=== PATIENT | female | born 1965 | race Caucasian/White ===

== ENCOUNTER 2017-01-14 17:58 | Inpatient (IN) | payer OTHER ==
[~2017-01-14] VITALS: Ht 152.4 cm; Wt 86.8 kg
[~2017-01-14 17:58] MED LIST: ABILIFY20 MG PO; ADVIL200 MG PO; ALBUTEROL SULF8.5 GM IH; ASPIR-LOW81 MG PO; ASPIR-TRIN325 M1 PO; AUGMENTIN875 MG PO; Amoxicillin PO; CELEXA40 MG PO; CITALOPRAM HBR40 MG PO; CLARITIN,ALAVAR10 MG PO; CLARITIN10 M3 PO; CYMBALTA20 MG PO; CYMBALTA30 MG PO; DITROPAN XL5 MG PO; FENOFIBRATE160 M1 PO; HUMALOG100 UNIT/1 SC; HUMALOG100 UNIT/2 SC; IBUPROFEN800 MG PO; IMDUR30 MG PO; JANUVIA100 MG PO; LAMICTAL200 MG PO; LANTUS 10100 UNITS/ SC; LANTUS 3 M100 UNITS1 SC; LANTUS100 UNIT/1; LEXAPRO10 MG PO; LIPITOR20 MG PO; LIPITOR40 MG PO; LISINOPRIL2.5 MG PO; LISINOPRIL20 MG PO; LOPRESSOR25 MG PO; LORAZEPAM1 MG PO; LaMICtal PO; METOPROLOL PO; METOPROLOL SUCC25 MG PO; METOPROLOL TART25 MG PO; MOBIC7.5 MG PO; MORPHINE SULFAT15 M1 PO; MS CONTIN,ORAMO15 M1 PO; NABUMETONE500 MG PO; NASONEX17 GM NS; NITROSTAT,NITR0.4 M1 SL; NOVOLOG 10100 UNITS/ SC; NOVOLOG PE100 UNITS/ SC; OXYCODONE HCL10 MG PO; OXYCODONE PO; PERCOCET 10-321 EACH PO; PERCOCET 10/1 TABLET PO; PLAVIX75 MG PO; PRAVACHOL40 MG PO; PRAVASTATIN SOD40 MG PO; PREDNISONE20 MG PO; PREDNISONE50 MG PO; PREVACID30 MG PO; PRINIVIL5 MG PO; PROTONIX40 MG PO; SULINDAC200 MG PO; TOPROL XL50 MG PO; TRAMADOL HCL50 MG PO; TYLENOL W/COD1 COMBO PO; VITAMIN D1000 INTUN PO; ZESTRIL5 MG PO; ZITHROMAX Z-PA250 MG PO; ZOFRAN4 MG PO
[2017-01-14 19:11] LABS: HEMATOCRIT 33.5 % (36.0-46.0); MCH 28.3 PG (29.0-34.0); MCHC 33.7 G/DL (30.0-36.0); MEAN PLAT.VOLUME 10.2 uM^3 (9.5-12.4); PLATELET COUNT 233 K/uL (156-360); RBC DIS.WIDTH-CV 13.1 % (11.8-14.6); RBC DIS.WIDTH-SD 39.9 % (39-53); RED BLOOD COUNT 3.99 M/uL (3.80-5.20); WHITE BLOOD COUNT 7.2 K/uL (4.1-10.2)
[2017-01-14 19:21] LABS: CHLORIDE 106 mEq/L (99-109); POTASSIUM 3.8 mEq/L (3.7-5.4); SODIUM 138 mEq/L (136-147)
[2017-01-14 19:23] LABS: GLUCOSE 238 mg/dL (70-99)
[2017-01-14 19:24] LABS: ANION GAP 12 MEQ/L (2-14)
[2017-01-14 19:25] LABS: TOTAL BILIRUBIN 0.8 mg/dL (0.0-1.0)
[2017-01-14 19:26] LABS: ALKALINE PHOSPHATASE 108 IU/L (3-129)
[2017-01-14 19:27] LABS: GFR ESTIMATE (CALCULATED) > 59 mL/min/
[2017-01-14 19:28] LABS: UREA NITROGEN (BUN) 17 mg/dL (9-23)
[2017-01-14 20:02] LABS: C-REACTIVE PROTEIN 70.7 MG/L (0-10); SAMPLE HEMOLYSIS CHECK 0; SAMPLE ICTERIC CHECK 0; SAMPLE LIPEMIA CHECK 0
[2017-01-14 20:26] LABS: ERTH.SED.RATE 67 MM/HR (0-30)
[2017-01-14] MEDS ORDERED: LIPITOR80 MG PO (21:16)
[2017-01-14] MEDS ORDERED: IMDUR30 MG PO (21:24)
[2017-01-14] MEDS ORDERED: VICTOZA0.6 MG/0.1 SC (21:24)
[2017-01-14] MEDS ORDERED: LEVO-T50 MCG PO (21:25)
[2017-01-15] VITALS (7 sets, daily range): BP systolic 100–178; BP diastolic 55–87
[2017-01-15 00:35] LABS: POINT-OF-CARE METER ID UU14100415
[2017-01-15] MEDS ORDERED: LANTUS 10100 UNITS/ SC ×2 (00:53)
[2017-01-15] MEDS ORDERED: LO-DOSE ASPIRIN81 M2 PO (00:54)
[2017-01-15] MEDS ORDERED: ARYMO ER15 MG PO (00:54)
[2017-01-15] MEDS ORDERED: PANTOPRAZOLE SO40 MG PO (00:55)
[2017-01-15] MEDS ORDERED: LISINOPRIL5 MG PO (00:55)
[2017-01-15] MEDS ORDERED: DITROPAN XL5 MG PO (00:55)
[2017-01-15] MEDS ORDERED: METOPROLOL SUCC50 MG PO (00:56)
[2017-01-15] MEDS ORDERED: NOVOLOG 10100 UNITS/ SC (00:57)
[2017-01-15] MEDS ORDERED: OXYCODONE HCL10 MG PO (00:57)
[2017-01-15] MEDS ORDERED: CLARITIN,ALAVAR10 MG PO (00:58)
[2017-01-15] MEDS ORDERED: CYMBALTA20 MG PO (00:58)
[2017-01-15] MEDS ORDERED: VICTOZA 2-0.6 MG/0.1 SC (00:59)
[2017-01-15] MEDS ORDERED: ISOSORBIDE MONO30 MG PO (00:59)
[2017-01-15] MEDS ORDERED: LEVO-T50 MCG PO (00:59)
[2017-01-15] MEDS ORDERED: ATORVASTATIN CA80 MG PO (01:00)
[2017-01-15] MEDS ORDERED: BRILINTA90 MG PO (01:00)
[2017-01-15 06:23] LABS: EOSINOPHIL (%) 2.9 % (0-5); EOSINOPHIL COUNT 0.2 K/uL (0-0.3); IMMATURE GRANULOCYTE (%) 0.5 % (0.0-0.7); INSTRUMENT ABS NEUTROPHIL CT 3.5 K/uL; LYMPHOCYTE COUNT 1.9 K/uL (1.0-2.8); MCH 28.6 PG (29.0-34.0); MCHC 33.9 G/DL (30.0-36.0); MCV 84.2 FL (83-99); MEAN PLAT.VOLUME 9.8 uM^3 (9.5-12.4); MONOCYTE (%) 10.2 % (3-12); MONOCYTE COUNT 0.6 K/uL (0-0.8); NEUTROPHIL COUNT 3.5 K/uL (1.8-6.4); PLATELET COUNT 203 K/uL (156-360); RBC DIS.WIDTH-CV 13.3 % (11.8-14.6); RED BLOOD COUNT 3.92 M/uL (3.80-5.20); WHITE BLOOD COUNT 6.2 K/uL (4.1-10.2)
[2017-01-15 06:34] LABS: CHLORIDE 108 mEq/L (99-109); POTASSIUM 3.8 mEq/L (3.7-5.4); SODIUM 136 mEq/L (136-147)
[2017-01-15 06:36] LABS: GLUCOSE 281 mg/dL (70-99)
[2017-01-15 06:37] LABS: ANION GAP 8 MEQ/L (2-14)
[2017-01-15 06:39] LABS: GFR ESTIMATE (CALCULATED) > 59 mL/min/
[2017-01-15 06:40] LABS: UREA NITROGEN (BUN) 13 mg/dL (9-23)
[2017-01-15 12:48] LABS: POINT-OF-CARE METER ID UU13113807
[2017-01-15 17:47] LABS: POINT-OF-CARE METER ID UU14149398
[2017-01-15 20:37] LABS: Estimated Average Glucose 289 mg/dL (70-123); HEMOGLOBIN A1c (GLYCOHEMOGLOB) 11.7 % HGB (Below 5.7)
[2017-01-15 21:52] LABS: POINT-OF-CARE METER ID UU13113675
[2017-01-15 22:47] LABS: POINT-OF-CARE METER ID UU14149398
[2017-01-16 07:38] LABS: POINT-OF-CARE METER ID UU14149398
[2017-01-16 08:00] VITALS: BP 100/67
[2017-01-16 09:46] LABS: HEMATOCRIT 32.2 % (36.0-46.0); MCH 28.4 PG (29.0-34.0); MCHC 32.3 G/DL (30.0-36.0); PLATELET COUNT 216 K/uL (156-360); RBC DIS.WIDTH-CV 13.3 % (11.8-14.6); RBC DIS.WIDTH-SD 43.4 % (39-53); RED BLOOD COUNT 3.66 M/uL (3.80-5.20); WHITE BLOOD COUNT 8.3 K/uL (4.1-10.2)
[2017-01-16 10:04] LABS: ANION GAP 24 MEQ/L (2-14); CHLORIDE 87 MEQ/L (99-109); GFR ESTIMATE (CALCULATED) 29 mL/min/; GLUCOSE 143 mg/dL (70-99); POTASSIUM 3.3 MEQ/L (3.7-5.4); SAMPLE HEMOLYSIS CHECK 0; SAMPLE ICTERIC CHECK 0; SAMPLE LIPEMIA CHECK 0; SODIUM 134 MEQ/L (136-147); UREA NITROGEN (BUN) 24 mg/dL (9-23)
[2017-01-16 12:00] VITALS: BP 101/55; BP 189/102
[2017-01-16 12:43] LABS: POINT-OF-CARE METER ID UU14149398
[2017-01-16 14:52] VITALS: BP 93/57
[2017-01-16 20:12] VITALS: BP 108/61
[2017-01-16 23:51] VITALS: BP 104/56
[2017-01-17 04:15] VITALS: BP 106/59
[2017-01-17 06:25] LABS: HEMATOCRIT 33.1 % (36.0-46.0); MCH 28.2 PG (29.0-34.0); MCHC 31.7 G/DL (30.0-36.0); MCV 88.7 FL (83-99); MEAN PLAT.VOLUME 10.1 uM^3 (9.5-12.4); PLATELET COUNT 231 K/uL (156-360); RBC DIS.WIDTH-CV 13.5 % (11.8-14.6); RBC DIS.WIDTH-SD 44.1 % (39-53); RED BLOOD COUNT 3.73 M/uL (3.80-5.20); WHITE BLOOD COUNT 10.3 K/uL (4.1-10.2)
[2017-01-17 06:49] LABS: ANION GAP 12 MEQ/L (2-14); CHLORIDE 104 MEQ/L (99-109); GFR ESTIMATE (CALCULATED) 16 mL/min/; GLUCOSE 102 mg/dL (70-99); POTASSIUM 4.4 MEQ/L (3.7-5.4); SAMPLE HEMOLYSIS CHECK 0; SAMPLE ICTERIC CHECK 0; SAMPLE LIPEMIA CHECK 0; SODIUM 137 MEQ/L (136-147); UREA NITROGEN (BUN) 37 mg/dL (9-23)
[2017-01-17 08:33] VITALS: BP 100/59
[2017-01-17 11:58] LABS: POINT-OF-CARE METER ID UU14149397
[2017-01-17 16:39] VITALS: BP 98/56
[2017-01-17 20:00] VITALS: BP 122/60
[2017-01-17 23:47] VITALS: BP 128/60
[2017-01-18 05:53] LABS: EOSINOPHIL COUNT 0.2 K/uL (0-0.3); HEMATOCRIT 29.1 % (36.0-46.0); IMMATURE GRANULOCYTE (%) 1.1 % (0.0-0.7); IMMATURE GRANULOCYTE COUNT 0.1 K/uL; INSTRUMENT ABS NEUTROPHIL CT 7.3 K/uL; LYMPHOCYTE COUNT 1.2 K/uL (1.0-2.8); MCH 28.1 PG (29.0-34.0); MCHC 31.6 G/DL (30.0-36.0); MEAN PLAT.VOLUME 10.3 uM^3 (9.5-12.4); MONOCYTE (%) 10.5 % (3-12); MONOCYTE COUNT 1.1 K/uL (0-0.8); NEUTROPHIL (%) 73.8 % (45-76); NEUTROPHIL COUNT 7.3 K/uL (1.8-6.4); PLATELET COUNT 212 K/uL (156-360); RBC DIS.WIDTH-CV 13.6 % (11.8-14.6); RBC DIS.WIDTH-SD 44.7 % (39-53); RED BLOOD COUNT 3.27 M/uL (3.80-5.20)
[2017-01-18 06:13] LABS: ANION GAP 13 MEQ/L (2-14); CHLORIDE 106 MEQ/L (99-109); GFR ESTIMATE (CALCULATED) 14 mL/min/; GLUCOSE 90 mg/dL (70-99); IRON 21 MCG/DL (35-150); POTASSIUM 4.8 MEQ/L (3.7-5.4); SAMPLE HEMOLYSIS CHECK 0; SAMPLE ICTERIC CHECK 0; SAMPLE LIPEMIA CHECK 0; SODIUM 135 MEQ/L (136-147); UREA NITROGEN (BUN) 46 mg/dL (9-23)
[2017-01-18 08:22] VITALS: BP 96/54
[2017-01-18 12:27] LABS: POINT-OF-CARE METER ID UU14149397
[2017-01-18 16:10] VITALS: BP 116/63
[2017-01-18 16:42] LABS: POINT-OF-CARE METER ID UU14149397
[2017-01-18 23:37] VITALS: BP 121/68
[2017-01-19 06:10] LABS: ANION GAP 11 MEQ/L (2-14); CHLORIDE 109 MEQ/L (99-109); GFR ESTIMATE (CALCULATED) 15 mL/min/; GLUCOSE 70 mg/dL (70-99); POTASSIUM 4.4 MEQ/L (3.7-5.4); SAMPLE HEMOLYSIS CHECK 0; SAMPLE ICTERIC CHECK 0; SAMPLE LIPEMIA CHECK 0; SODIUM 137 MEQ/L (136-147); UREA NITROGEN (BUN) 53 mg/dL (9-23)
[2017-01-19 08:05] VITALS: BP 85/50
[2017-01-19 16:13] VITALS: BP 104/55
[2017-01-19 23:29] VITALS: BP 131/70
[2017-01-20 06:52] LABS: ANION GAP 11 MEQ/L (2-14); CHLORIDE 112 MEQ/L (99-109); GFR ESTIMATE (CALCULATED) 18 mL/min/; GLUCOSE 55 mg/dL (70-99); POTASSIUM 3.8 MEQ/L (3.7-5.4); SAMPLE HEMOLYSIS CHECK 0; SAMPLE ICTERIC CHECK 0; SAMPLE LIPEMIA CHECK 0; SODIUM 139 MEQ/L (136-147); UREA NITROGEN (BUN) 52 mg/dL (9-23)
[2017-01-20 07:33] LABS: POINT-OF-CARE METER ID UU14188577
[2017-01-20 08:51] VITALS: BP 121/71
[2017-01-20 11:34] LABS: POINT-OF-CARE METER ID UU14188577
[2017-01-20 11:36] LABS: EOSINOPHIL (%) 1.5 % (0-5); EOSINOPHIL COUNT 0.1 K/uL (0-0.3); IMMATURE GRANULOCYTE (%) 0.4 % (0.0-0.7); INSTRUMENT ABS NEUTROPHIL CT 5.8 K/uL; MCH 27.7 PG (29.0-34.0); MCHC 31.4 G/DL (30.0-36.0); MCV 88.4 FL (83-99); MEAN PLAT.VOLUME 10.3 uM^3 (9.5-12.4); MONOCYTE (%) 8.5 % (3-12); MONOCYTE COUNT 0.6 K/uL (0-0.8); NEUTROPHIL (%) 76.4 % (45-76); NEUTROPHIL COUNT 5.8 K/uL (1.8-6.4); PLATELET COUNT 218 K/uL (156-360); RBC DIS.WIDTH-CV 13.8 % (11.8-14.6); RBC DIS.WIDTH-SD 44.9 % (39-53); RED BLOOD COUNT 3.28 M/uL (3.80-5.20); WHITE BLOOD COUNT 7.5 K/uL (4.1-10.2)
[2017-01-20 12:06] LABS: POINT-OF-CARE METER ID UU14188577
[2017-01-20 13:50] LABS: ADD MIUA? NO; BILIRUBIN NEGATIVE; BLOOD NEGATIVE; COLOR STRAW ((YELLOW)); GLUCOSE (STRIP) NEGATIVE; KETONES NEGATIVE; LEUKOCYTES NEGATIVE; NITRITE NEGATIVE; PROTEIN (STRIP) NEGATIVE; SPECIFIC GRAVITY 1.008 (1.000-1.030); UROBILINOGEN 0.2 MG/DL (0.2-1.0)
[2017-01-20 16:20] VITALS: BP 161/81
[2017-01-20 21:11] LABS: POINT-OF-CARE METER ID UU14188577
[2017-01-21 00:43] VITALS: BP 154/72
[2017-01-21 05:48] LABS: CARBON DIOXIDE (BICARBONATE) 19.1 MEQ/L (20-31)
[2017-01-21 06:14] LABS: ANION GAP 13 MEQ/L (2-14); CHLORIDE 112 MEQ/L (99-109); GFR ESTIMATE (CALCULATED) 24 mL/min/; POTASSIUM 3.7 MEQ/L (3.7-5.4); SAMPLE HEMOLYSIS CHECK 0; SAMPLE ICTERIC CHECK 0; SAMPLE LIPEMIA CHECK 0; SODIUM 141 MEQ/L (136-147); UREA NITROGEN (BUN) 41 mg/dL (9-23)
[2017-01-21 06:17] LABS: GLUCOSE 145 mg/dL (70-99)
[2017-01-21 07:39] LABS: POINT-OF-CARE METER ID UU14149397
[2017-01-21 07:43] VITALS: BP 162/85
[2017-01-21 11:09] LABS: POINT-OF-CARE METER ID UU14149397
[2017-01-21 15:17] VITALS: BP 122/66
[2017-01-21 16:45] LABS: POINT-OF-CARE METER ID UU14149397
[2017-01-21 23:26] VITALS: BP 154/78
[2017-01-22 06:16] LABS: HEMATOCRIT 32.2 % (36.0-46.0); MCH 28.2 PG (29.0-34.0); MCHC 32.6 G/DL (30.0-36.0); MCV 86.6 FL (83-99); MEAN PLAT.VOLUME 9.6 uM^3 (9.5-12.4); RBC DIS.WIDTH-CV 13.8 % (11.8-14.6); RBC DIS.WIDTH-SD 43.7 % (39-53); RED BLOOD COUNT 3.72 M/uL (3.80-5.20)
[2017-01-22 06:46] LABS: ANION GAP 12 MEQ/L (2-14); CHLORIDE 110 MEQ/L (99-109); GFR ESTIMATE (CALCULATED) 29 mL/min/; POTASSIUM 3.7 MEQ/L (3.7-5.4); SAMPLE HEMOLYSIS CHECK 0; SAMPLE ICTERIC CHECK 0; SAMPLE LIPEMIA CHECK 0; SODIUM 142 MEQ/L (136-147); UREA NITROGEN (BUN) 35 mg/dL (9-23)
[2017-01-22 06:51] LABS: GLUCOSE 66 mg/dL (70-99)
[2017-01-22 07:15] LABS: PLATELET COUNT 291 K/uL (156-360); WHITE BLOOD COUNT 10.1 K/uL (4.1-10.2)
[2017-01-22 08:28] VITALS: BP 129/85
[2017-01-22 09:34] LABS: ADD MIUA? NO; BILIRUBIN NEGATIVE; BLOOD NEGATIVE; COLOR STRAW ((YELLOW)); GLUCOSE (STRIP) NEGATIVE; KETONES NEGATIVE; LEUKOCYTES NEGATIVE; NITRITE NEGATIVE; PROTEIN (STRIP) NEGATIVE; SPECIFIC GRAVITY 1.009 (1.000-1.030); UCUL ADDED? NO; UROBILINOGEN 0.2 MG/DL (0.2-1.0)
[2017-01-22 11:26] LABS: BASE EXCESS -2.5 mEq/L (-3 to +3); BICARBONATE 21.2 mEq/L (22-26); CARBOXY HGB 3.6 % (0-5); METHEMOGLOBIN 1.1 % (0-1.5); PCO2 32 mm Hg (35-45); PO2 69 mm Hg (80-100); pH 7.43 (7.35-7.45)
[2017-01-22 11:27] LABS: COMMENTS - BLOOD GASES A+C+; DEVICE RA; SITE RR; TOTAL RESP RATE 16 resp/min
[2017-01-22 11:33] LABS: POINT-OF-CARE METER ID UU14149397
[2017-01-22 16:00] VITALS: BP 141/71
[2017-01-22 16:54] LABS: POINT-OF-CARE METER ID UU14149397
== END 2017-01-22 19:34 | disposition left against medical advice (07) | DRG 638 ==
LOC: EME 17:58 → EDOF 21:28 → 4SOUTH 21:28 → 3EAST 21:28 → 4SOUTH 01-15 07:25 → 3EAST 01-16 14:37
PROVIDERS: Hospitalist; Internal Medicine; Internal Medicine Nephrology; Nurse Practitioner Family; Physician Assistant; Student in an Organized Health Care Education/Training Program
PROC: 0J9J0ZX Drainage of Right Hand Subcutaneous Tissue and Fascia, Open Approach, Diagnostic (ICD-10-PCS; principal; 2017-01-15)
DX: E11.69 Type 2 diabetes mellitus with other specified complication (principal); M86.141 Other acute osteomyelitis, right hand; E11.628 Type 2 diabetes mellitus with other skin complications; L02.511 Cutaneous abscess of right hand; L03.011 Cellulitis of right finger; B95.62 Methicillin resistant Staphylococcus aureus infection as the cause of diseases classified elsewhere; B96.89 Other specified bacterial agents as the cause of diseases classified elsewhere; E87.2 Acidosis; N17.0 Acute kidney failure with tubular necrosis; N14.1 Nephropathy induced by other drugs, medicaments and biological substances; T36.8X5A Adverse effect of other systemic antibiotics, initial encounter; G92 Toxic encephalopathy; I95.9 Hypotension, unspecified; E11.649 Type 2 diabetes mellitus with hypoglycemia without coma; E11.65 Type 2 diabetes mellitus with hyperglycemia; I10 Essential (primary) hypertension; F32.1 Major depressive disorder, single episode, moderate; G89.4 Chronic pain syndrome; Z79.891 Long term (current) use of opiate analgesic; F41.9 Anxiety disorder, unspecified; I25.10 Atherosclerotic heart disease of native coronary artery without angina pectoris; I25.2 Old myocardial infarction; E78.5 Hyperlipidemia, unspecified; J44.9 Chronic obstructive pulmonary disease, unspecified; J45.909 Unspecified asthma, uncomplicated; E03.9 Hypothyroidism, unspecified; K21.9 Gastro-esophageal reflux disease without esophagitis; E66.01 Morbid (severe) obesity due to excess calories; Z68.37 Body mass index [BMI] 37.0-37.9, adult; Z86.73 Personal history of transient ischemic attack (TIA), and cerebral infarction without residual deficits; Z86.711 Personal history of pulmonary embolism; Z87.891 Personal history of nicotine dependence; Z79.4 Long term (current) use of insulin; Z79.82 Long term (current) use of aspirin; Z95.1 Presence of aortocoronary bypass graft; Z95.2 Presence of prosthetic heart valve; Z95.5 Presence of coronary angioplasty implant and graft; Z91.19 Patient's noncompliance with other medical treatment and regimen
CPT/HCPCS: 36600; 70450; 73130; 73140; 76770; 80048; 80053; 80069; 80202; 81003; 82140; 82565; 82803; 82948; 83036; 83540; 83605; 84466; 85025; 85027; 85651; 86140; 87040; 87070; 87075; 87076; 87077; 87086; 87147; 87186; 87205; 87493; 93005; 93971; 99281; 99285; J0295; J1644; J1650; J1815; J2250; J2270; J2405; J2543; J3370; J7030; J7040; J7050; S0020

== ENCOUNTER 2017-02-16 10:27 | Emergency (ER) | payer OTHER ==
[~2017-02-16] VITALS: Ht 152.4 cm; Wt 83.1 kg
[~2017-02-16 10:27] MED LIST changes: +ARYMO ER15 MG PO; +ATORVASTATIN CA80 MG PO; +BRILINTA90 MG PO; +ISOSORBIDE MONO30 MG PO; +LEVO-T50 MCG PO; +LIPITOR80 MG PO; +LISINOPRIL5 MG PO; +LO-DOSE ASPIRIN81 M2 PO; +METHYLPREDNISOLO4 MG PO; +METOPROLOL SUCC50 MG PO; +PANTOPRAZOLE SO40 MG PO; +VICTOZA 2-0.6 MG/0.1 SC; +VICTOZA0.6 MG/0.1 SC
[2017-02-16 11:41] LABS: CHLORIDE 108 mEq/L (99-109); POTASSIUM 5.4 mEq/L (3.7-5.4); SODIUM 131 mEq/L (136-147)
[2017-02-16 11:43] LABS: GLUCOSE 361 mg/dL (70-99)
[2017-02-16 11:44] LABS: ANION GAP 8 MEQ/L (2-14)
[2017-02-16 11:47] LABS: GFR ESTIMATE (CALCULATED) 31 mL/min/
[2017-02-16 11:48] LABS: UREA NITROGEN (BUN) 36 mg/dL (9-23)
[2017-02-16 11:51] LABS: HEMATOCRIT 34.6 % (36.0-46.0); MCH 27.8 PG (29.0-34.0); MCHC 31.8 G/DL (30.0-36.0); MCV 87.4 FL (83-99); MEAN PLAT.VOLUME 10.4 uM^3 (9.5-12.4); PLATELET COUNT 211 K/uL (156-360); RBC DIS.WIDTH-CV 14.6 % (11.8-14.6); RBC DIS.WIDTH-SD 46.9 % (39-53); RED BLOOD COUNT 3.96 M/uL (3.80-5.20)
[2017-02-16 11:53] LABS: TROP-I INTERPRETATION NEGATIVE; TROPONIN-I < 0.01 ng/mL (0.0-0.30)
[2017-02-16 11:56] LABS: WHITE BLOOD COUNT 5.6 K/uL (4.1-10.2)
[2017-02-16 13:17] VITALS: BP 145/78
== END 2017-02-16 13:20 | disposition home or self-care (01) ==
LOC: EME 10:27
DX: R07.89 Other chest pain (principal); I48.91 Unspecified atrial fibrillation; F41.9 Anxiety disorder, unspecified; J45.909 Unspecified asthma, uncomplicated; F32.9 Major depressive disorder, single episode, unspecified; E11.9 Type 2 diabetes mellitus without complications; I10 Essential (primary) hypertension; E03.9 Hypothyroidism, unspecified; G43.909 Migraine, unspecified, not intractable, without status migrainosus; I25.2 Old myocardial infarction; K21.9 Gastro-esophageal reflux disease without esophagitis; Z87.891 Personal history of nicotine dependence; Z95.5 Presence of coronary angioplasty implant and graft; Z95.1 Presence of aortocoronary bypass graft; I25.10 Atherosclerotic heart disease of native coronary artery without angina pectoris; E86.0 Dehydration
CPT/HCPCS: 36600; 71020; 80048; 82803; 84484; 85027; 93005; 99281; 99284

== ENCOUNTER 2017-03-15 16:43 | Emergency (ER) | payer OTHER ==
[~2017-03-15] VITALS: Ht 152.4 cm; Wt 84.6 kg
[2017-03-15 18:06] LABS: MCH 28.4 PG (29.0-34.0); MCHC 33.4 G/DL (30.0-36.0); MCV 84.9 FL (83-99); PLATELET COUNT 207 K/uL (156-360); RBC DIS.WIDTH-CV 14.6 % (11.8-14.6); RBC DIS.WIDTH-SD 45.1 % (39-53); RED BLOOD COUNT 3.77 M/uL (3.80-5.20); WHITE BLOOD COUNT 8.1 K/uL (4.1-10.2)
[2017-03-15 18:17] LABS: CHLORIDE 106 mEq/L (99-109); SODIUM 136 mEq/L (136-147)
[2017-03-15 18:19] LABS: GLUCOSE 208 mg/dL (70-99)
[2017-03-15 18:21] LABS: ANION GAP 10 MEQ/L (2-14); TOTAL BILIRUBIN 0.6 mg/dL (0.0-1.0)
[2017-03-15 18:23] LABS: ALKALINE PHOSPHATASE 90 IU/L (3-129); GFR ESTIMATE (CALCULATED) 39 mL/min/
[2017-03-15 18:24] LABS: UREA NITROGEN (BUN) 35 mg/dL (9-23)
[2017-03-15 18:26] LABS: LIPASE 69 U/L (1.0-51.0)
[2017-03-15] MEDS ORDERED: MIRALAX17 GM PO (21:50)
[2017-03-15 22:27] VITALS: BP 122/78
== END 2017-03-15 22:28 | disposition home or self-care (01) ==
LOC: EME → EDBD 16:43 → EME 22:28
PROVIDERS: Emergency Medicine
DX: R10.84 Generalized abdominal pain (principal); K59.00 Constipation, unspecified; I10 Essential (primary) hypertension; E11.9 Type 2 diabetes mellitus without complications; Z79.4 Long term (current) use of insulin; I25.10 Atherosclerotic heart disease of native coronary artery without angina pectoris; I25.2 Old myocardial infarction; Z95.1 Presence of aortocoronary bypass graft; Z95.5 Presence of coronary angioplasty implant and graft; K21.9 Gastro-esophageal reflux disease without esophagitis; Z86.73 Personal history of transient ischemic attack (TIA), and cerebral infarction without residual deficits; J45.909 Unspecified asthma, uncomplicated; F32.9 Major depressive disorder, single episode, unspecified; Z87.891 Personal history of nicotine dependence
CPT/HCPCS: 74176; 80053; 81003; 83605; 83690; 85027; 93005; 99281; 99284; J2270; J2405